=== PATIENT | male | born 1985 | race Two or more races ===

== ENCOUNTER 2018-06-18 09:24 | Emergency (ER) | payer MEDICAID ==
[~2018-06-18] VITALS: Ht 180.3 cm; Wt 86.2 kg
--- NOTE | 2018-06-18 09:30 | NUR ---
pt bib self CHRONIC HEADACHES WORST TODAY. NOW C/O NAUSEA AND VOMITING. alert and oriented x 4, verbally responsive and able to make needs known. on room air, 02 sat 98%, breathing evenly and unlabored. kept comfortable, will continue to monitor accordingly.
--- NOTE | 2018-06-18 09:35 | NUR ---
Dr. Teague at bedside for eval.
[2018-06-18] MEDS ORDERED: PROCHLORPERAZINE EDISYLATE 10 MG/2 ML VIAL ONE (09:56)
[2018-06-18] MEDS ORDERED: PROCHLORPERAZINE EDISYLATE 10 MG/2 ML VIAL IM ONE (10:00)
[2018-06-18 10:51] VITALS: BP 140/80
--- NOTE | 2018-06-18 10:53 | NUR ---
patient left awol, refused to sign discharge instructions. Alert and oriented x 4. MD made aware.
== END 2018-06-18 10:52 | disposition left against medical advice (07) ==
LOC: ER 09:28
DX: G89.29 Other chronic pain (principal); R56.9 Unspecified convulsions; Z76.5 Malingerer [conscious simulation]; Z86.73 Personal history of transient ischemic attack (TIA), and cerebral infarction without residual deficits; Z88.6 Allergy status to analgesic agent; Z88.1 Allergy status to other antibiotic agents
CPT/HCPCS: 96372; 99283; A4606; J0780; Z7610